=== PATIENT | male | born 1975 | race Caucasian/White ===

== ENCOUNTER 2016-08-31 13:16 | Emergency (ER) | payer BC, OTHER ==
[2016-08-31] MEDS ORDERED: Ibuprofen TAB* 600 MG PO ONE (15:14)
--- NOTE | 2016-08-31 15:27 | UC ---
Upper Extremity HPI - HPI Summary HPI Summary: 80-90 pound metal gate fell from propped-up position, crushing L hand. Laceration to L dorsal 5th finger, pain and aching with movement. - History of Current Complaint Chief Complaint: UCLaceration Stated Complaint: LEFT HAND/FINGER INJURY Time Seen by Provider: 08/31/16 15:05 Hx Obtained From: Patient ?: No Onset/Duration: Sudden Onset Severity Initially: Moderate Severity Currently: Moderate Location Of Pain: Is Discrete @ Character: Dull, Throbbing Aggravating Factor(s): Movement Alleviating Factor(s): Ice, Rest Related History: Dominant Hand Right - Allergies/Home Medications Allergies/Adverse Reactions: Allergies Allergy/AdvReac Type Severity Reaction Status Date / Time Bee Venom Allergy Anaphylatic Verified 08/31/16 15:01 Shock Penicillins Allergy Hives Verified 08/31/16 15:00 Shellfish Allergy Allergy Anaphylatic Verified 08/31/16 15:01 Shock PMH/Surg Hx/FS Hx/Imm Hx Respiratory History Of: Reports: Asthma - Surgical History Surgical History: None - Family History Known Family History: Negative: Blood Disorder - Social History Occupation: Employed Full-time Alcohol Use: Weekly Substance Use Type: None Smoking Status (MU): Never Smoked Tobacco Type: Smokeless Tobacco Review of Systems Constitutional: Negative Skin: Other - lac to L 5th finger Eyes: Negative ENT: Negative Respiratory: Negative Cardiovascular: Negative Gastrointestinal: Negative Genitourinary: Negative Motor: Negative Neurovascular: Negative Musculoskeletal: Negative Neurological: Negative Psychological: Negative All Other Systems Reviewed And Are Negative: Yes Physical Exam Triage Information Reviewed: Yes Appearance: Well-Appearing, Well-Nourished, Pain Distress - mild Vital Signs: Initial Vital Signs Temp 98.2 F 08/31/16 14:53 Pulse 107 08/31/16 14:53 Resp 16 08/31/16 14:53 BP 133/85 08/31/16 14:53 Pulse Ox 98 08/31/16 14:53 Vital Signs Reviewed: Yes Eye Exam: Normal Eyes: Positive: Conjunctiva Clear ENT Exam: Normal ENT: Positive: Normal ENT inspection, Hearing grossly normal, Pharynx normal, TMs normal Neck exam: Normal Respiratory Exam: Normal Respiratory: Positive: Chest non-tender, Lungs clear, Normal breath sounds, No respiratory distress, No accessory muscle use Cardiovascular: Positive: No Murmur, Tachycardia Musculoskeletal: Positive: ROM Limited @ - L 5th finger, ltd by pain Neurological Exam: Normal Psychological Exam: Normal Skin Exam: Other - 2.5cm lac L 5th finger Procedures - Laceration/Wound Repair 1 Location: upper extremity Description: Linear Length, Depth and Shape: 2.5cm x 0mm x 0mm Betadine Prep?: No Laceration/Wound Explored: clean - open fracture with copious flushing Closure: SteriStrips Layer Closure?: No Sterile Dressing Applied?: Yes Upper Extremity Course/Dx - Differential Dx/Diagnosis Provider Diagnoses: open nondispaced fracture of L 5th proximal phalanx Discharge - Discharge Plan Condition: Stable Disposition: HOME Patient Education Materials: Hand Fracture (ED) Forms: *Work Release Referrals: Kenneth Villatoro MD [Medical Doctor] - Additional Instructions: Keep the dressing dry and undisturbed until your follow-up exam. Start your cephalexin prescription tonight and elevate the hand as much as possible. Please arrange to be seen tomorrow by Dr. Villatoro. You should go to [address] [place] [address]. The office can be called at [phone].
[2016-08-31] MEDS ORDERED: ceFAZolin 500 MG VIAL(*) 500 MG VIAL IM ONE (15:50)
--- NOTE | 2016-08-31 15:54 | RAD ---
Indication: Crush injury of the fifth finger injury left hand 3 views of the left fifth digit demonstrates a irregular transverse fracture of the shaft of the proximal phalanx of the fifth digit. No significant displacement is noted. Degenerative changes of the proximal interphalangeal joint is noted. IMPRESSION: NONDISPLACED FRACTURE THROUGH THE PROXIMAL PHALANX OF THE FIFTH DIGIT.
[2016-08-31 16:44] VITALS: BP 126/64
== END 2016-08-31 16:45 | disposition home or self-care (01) ==
LOC: UCCORT 13:16
DX: S62.647B Nondisplaced fracture of proximal phalanx of left little finger, initial encounter for open fracture (principal); W23.0XXA Caught, crushed, jammed, or pinched between moving objects, initial encounter; Y93.9 Activity, unspecified; Y92.9 Unspecified place or not applicable; Z88.0 Allergy status to penicillin
CPT/HCPCS: 73140; 96372; 99203; A9270-GY; G0463; J0690

== ENCOUNTER → 2016-09-03 07:02 | Day surgery (SDC) | payer OTHER ==
[~2016-09-03 07:02] MED LIST: Buffered Lidocaine 1% SYR 3ML* 3 ML/SYR SYRINGE INTRADERM ONE; Bupivacaine 0.25% SDV* 30 ML ONE; Clindamycin 900 MG IVPREMIX(* 900 MG/50 ML SDV IV ONE; Dexamethasone IV* 4 MG/ML 1 ML (4 MG) ONE; DiMENhydriNATE IV* 50 MG/ML VIAL IV PUSH PRN; Ketorolac INJ* 30 MG/ML 1 ML VIAL ONE; Midazolam* 1 MG/ML 5 ML VIAL (5 MG) ONE; Ondansetron INJ* 2 MG/ML VIAL IV PRN; Ondansetron INJ* 2 MG/ML VIAL ONE; Propofol* 10 MG/ML 20 ML BTL IV PUSH ONE; fentaNYL* 50 MCG/ML 2 ML VIAL (100 MCG VIAL) IV PRN; fentaNYL* 50 MCG/ML 2 ML VIAL (100 MCG VIAL) ONE
[2016-09-03 11:22] VITALS: BP 119/74
--- NOTE | 2016-09-04 10:59 | OP ---
DATE OF OPERATION: 09/03/16 - [facility] DATE OF : 73 SURGEON: Kenneth Villatoro MD. COMMERCIAL UNDERWRITER: STEPH Forrester. ANESTHESIOLOGIST: Dr. Leone. ANESTHESIA: General. PRE-OP DIAGNOSIS: Left small finger crush injury with open proximal phalanx fracture. POST-OP DIAGNOSIS: Left small finger crush injury with open proximal phalanx fracture. PROCEDURE PERFORMED: 1. Irrigation and debridement of skin, subcutaneous tissue, and tendon, peritenon, left small finger open proximal phalanx fracture. 2. Open reduction and internal fixation, left small finger proximal phalanx open fracture. INDICATIONS: Markos is a 41-year-old male who had a 90-pound piece of machinery fall onto his left hand at work. He had the open fracture. He presented to the office after it had been washed and closed the day before at the [facility]. He had been on some oral antibiotics. They had just put a Steri-Strip over it, so in the office I irrigated it out and placed a couple of stitches in it. I splinted him and he has been on cephalexin for the last [id number], and he now presents for surgery. ESTIMATED BLOOD LOSS: 5 mL. COMPLICATIONS: None. FINDINGS: As expected. There were some small blackish foreign material in the wound. DESCRIPTION OF PROCEDURE: Markos was seen in the preoperative holding area and the correct side and site were marked. We came back to the operating room where anesthesia was induced and the arm was prepped and draped in the usual fashion using a Betadine prep. The arm was exsanguinated with the Esmarch and the tourniquet inflated to 250 mmHg. I then extended the traumatic wound proximally and distally in a lazy-S type pattern. The traumatized skin edges and subcutaneous skin were debrided back a millimeter or so on either side of the traumatic wound to freshen up the skin edge. There was some black foreign debris in the wound and this was debrided out sharply with the knife. The peritenon overlying the extensor tendon and just a few of the tendon fibers were also involved in the injury and contaminated and these were debrided as well. I irrigated the wound copiously with about a liter of fluid. Everything looked really clean. I could not see any more foreign material at this point. So, I went ahead and made a longitudinal incision down the middle of the central slip and raised the underlying periosteum and soft tissue off the proximal phalanx sharply with the knife. The fracture edges were exposed and cleaned. I used a point-of- reduction clamp to hold the reduction after I had reduced the diaphyseal fracture. I then placed a 1.3 mm lag screw obliquely across the fracture and excellent compression was obtained. I then removed the clamp and placed a little 1.3 mm T-plate on the dorsum of the proximal phalanx. This was secured with cortical and locking screws. I checked fluoroscopy. Everything looked very nice. I went ahead and irrigated the wound and then I closed the periosteum and deep soft tissue layer with some 5-0 Prolene suture with the knots buried. I then closed the split in the central slip with the same 5-0 Prolene suture, again with the knots buried. The wound was irrigated and the skin was closed with 5-0 nylon suture. The wound was then dressed with Xeroform , 4 x 4, 1- inch Tyree, and a Coban dressing was applied. Tourniquet was deflated and the finger pinked up immediately. I did place a digital block with some Marcaine prior to placing the dressings. He was then woken up and taken to the recovery room in stable condition. POSTOPERATIVE PLAN: He is going to begin gentle motion in the finger. He is not to do any lifting, pushing or pulling. He understands that. I am going to see him back in a [id number]. [id number]/CPS #: [id number]
--- NOTE | 2016-09-04 14:20 | RAD ---
INDICATION: Traumatic fracture left fifth finger operative reduction and internal fixation. COMPARISON: Comparison is made with a prior x-ray study of the left fifth finger from every 2016. TECHNIQUE: 22 seconds of intermittent fluoroscopic guidance were provided and 2 spot films of the left fifth finger were obtained in the operating room. FINDINGS: There is a transverse fracture of the proximal phalanx of the fifth finger. The patient is status post operative reduction and internal fixation. There is a metallic plate present along the dorsal aspect of the proximal phalanx transfixed with multiple screws. The bones are in normal alignment. IMPRESSION: INTRAOPERATIVE CONTROL FILMS. CPT II Codes: 6045F
== END | disposition home or self-care (01) ==
LOC: OREAST 07:02
PROVIDERS: ATTEND Orthopaedic Surgery Hand Surgery
DX: S62.617B Displaced fracture of proximal phalanx of left little finger, initial encounter for open fracture (principal); W31.82XA Contact with other commercial machinery, initial encounter; J45.909 Unspecified asthma, uncomplicated; Y93.89 Activity, other specified; Y92.69 Other specified industrial and construction area as the place of occurrence of the external cause; Y99.0 Civilian activity done for income or pay
CPT/HCPCS: 76000; C1713; C1776; J1100; J1885; J2250; J2405; J2704; J3010